=== PATIENT | male | born 1985 | race Caucasian/White ===

== ENCOUNTER 2022-09-20 10:44 | Inpatient (IN) | payer OTHER ==
[2022-09-20] MEDS ORDERED: cefTRIAXone\\ROCEPHIN 1 GM VIAL ONE (11:06)
[2022-09-20] MEDS ORDERED: Sodium Chloride 0.9% 100 ML ONE (11:06)
[2022-09-20] MEDS ORDERED: Azithromycin 500 MG VIAL ONE ×3 (11:06→12:03)
[2022-09-20 11:28] LABS: #Basophils 0.2 thou/uL (0.0-0.2); #Lymphocytes 1.6 thou/uL (1.20-3.40); #Monocytes 1.1 thou/uL (0.11-0.59); #Neutrophils 6.5 thou/uL (1.40-6.50); %Basophils 1.7 % (0.0-1.0); %Eosinophils 0.1 % (0.0-10.0); %Monocytes 11.5 % (0.0-10.0); %Neutrophils 69.6 % (42.0-75.0); Hemoglobin 17.3 g/dL (14.0-18.0); Mean Corpuscular HGB CONC 33.3 g/dL (32.0-36.0); Mean Corpuscular Hemoglobin 29.9 pg (27.0-31.0); Mean Corpuscular Volume 89.8 fl (78.0-98.0); Mean Platelet Volume 8.4 fL (7.4-10.4); Platelet Count 206 10x3/uL (130-400); RBC Distribution Width 13.1 % (11.5-14.5); Red Blood Cell (RBC) Count 5.79 mill/uL (4.70-6.10); White Blood Cell (WBC) Count 9.3 10x3/uL (4.8-10.8)
[2022-09-20 11:41] LABS: ALT (SGPT) 34 U/L (8-55); AST (SGOT) 23 U/L (5-34); Albumin 3.9 g/dL (3.5-5.0); Alkaline Phosphatase 63 U/L (40-110); Anion Gap 15 mmol/L (10-20); BUN (Urea Nitrogen) 12 mg/dL (8.9-20.6); Bilirubin, Total 0.3 mg/dL (0.2-1.2); Calc. Creatinine Clearance 0 mL/min (70-130); Calcium 8.4 mg/dL (7.8-10.44); Carbon Dioxide 27 mmol/L (22-29); Chloride 103 mmol/L (98-107); Estimated GFR 114; Globulin 3.1 g/dL (2.4-3.5); Glucose 131 mg/dL (70-105); Potassium 4.4 mmol/L (3.5-5.1); Sodium 141 mmol/L (136-145)
[2022-09-20 12:11] LABS: SARS-CoV-2 NAA Rapid Test Not Detected (NotDetected)
[2022-09-20] MEDS ORDERED: Sodium Chloride 0.9% 1,000 ML IV SCH (13:45)
[2022-09-20] MEDS ORDERED: Ondansetron PF 4 MG/2 ML Vial IVP PRN ×2 (13:45→19:57)
[2022-09-20] MEDS ORDERED: Ondansetron ODT 4 MG TAB SL PRN ×2 (13:45→19:58)
[2022-09-20 14:38] LABS: Lactic Acid 2.1 mmol/L (0.5-2.2)
[2022-09-20 15:01] VITALS: BMI 21.6
[2022-09-20] MEDS: Acetaminophen 325 MG TAB PO PRN ×2 (15:34→19:53)
[2022-09-20] MEDS ORDERED: Oseltamivir 75 MG CAP PO SCH (17:30)
[2022-09-20] MEDS ORDERED: Acetaminophen 325 MG TAB PO PRN (19:58)
[2022-09-20] MEDS: Sodium Chloride 0.9% 1,000 ML IV SCH (20:43)
[2022-09-20] MEDS: Ibuprofen 200 MG TAB PO SCH (21:53)
[2022-09-20] MEDS: Propranolol HCl 20 MG TAB PO SCH (21:54)
[2022-09-20] MEDS: Oseltamivir 75 MG CAP PO SCH (21:55)
[2022-09-21] MEDS: Sodium Chloride 0.9% 1,000 ML IV SCH (03:40)
[2022-09-21] MEDS: Ibuprofen 200 MG TAB PO SCH (05:27)
[2022-09-21] MEDS: Propranolol HCl 20 MG TAB PO SCH (05:27)
[2022-09-21 06:27] LABS: #Basophils 0.1 thou/uL (0.0-0.2); #Lymphocytes 2.6 thou/uL (1.20-3.40); #Monocytes 1.1 thou/uL (0.11-0.59); #Neutrophils 4.5 thou/uL (1.40-6.50); %Basophils 0.9 % (0.0-1.0); %Eosinophils 0.5 % (0.0-10.0); %Lymphocytes 31.4 % (21.0-51.0); %Monocytes 12.9 % (0.0-10.0); %Neutrophils 54.3 % (42.0-75.0); Hemoglobin 16.1 g/dL (14.0-18.0); Mean Corpuscular Hemoglobin 30.1 pg (27.0-31.0); Mean Corpuscular Volume 88.7 fl (78.0-98.0); Mean Platelet Volume 7.9 fL (7.4-10.4); Platelet Count 209 10x3/uL (130-400); RBC Distribution Width 12.8 % (11.5-14.5); Red Blood Cell (RBC) Count 5.36 mill/uL (4.70-6.10); White Blood Cell (WBC) Count 8.2 10x3/uL (4.8-10.8)
[2022-09-21 06:43] LABS: ALT (SGPT) 27 U/L (8-55); AST (SGOT) 19 U/L (5-34); Albumin 3.2 g/dL (3.5-5.0); Alkaline Phosphatase 49 U/L (40-110); Anion Gap 10 mmol/L (10-20); BUN (Urea Nitrogen) 9 mg/dL (8.9-20.6); Bilirubin, Total 0.2 mg/dL (0.2-1.2); Calc. Creatinine Clearance 185 mL/min (70-130); Calcium 7.7 mg/dL (7.8-10.44); Carbon Dioxide 23 mmol/L (22-29); Chloride 110 mmol/L (98-107); Estimated GFR 119; Globulin 2.6 g/dL (2.4-3.5); Glucose 108 mg/dL (70-105); Potassium 4.1 mmol/L (3.5-5.1); Protein, Total 5.8 g/dL (6.0-8.3); Sodium 139 mmol/L (136-145)
[2022-09-21] MEDS: Oseltamivir 75 MG CAP PO SCH (09:21)
[2022-09-21 10:08] VITALS: BP 140/86; TEMP 97.7
[2022-09-21] MEDS ORDERED: cefTRIAXone\\ROCEPHIN 1 GM in Sodium Chloride 0.9% 100 ML IVPB SCH (11:00)
[2022-09-21] MEDS ORDERED: Azithromycin 500 MG in Sodium Chloride 0.9% 250 ML 250 ML IVPB SCH (12:00)
== END 2022-09-21 09:50 | disposition home or self-care (01) | DRG 194 ==
LOC: BURERS 10:44 → OBSVTOIN 12:46 → BURMED 12:46
PROVIDERS: ADMIT Family Medicine; ATTEND Family Medicine
DX: J10.00 Influenza due to other identified influenza virus with unspecified type of pneumonia (principal); E87.20 Acidosis, unspecified; Z20.822 Contact with and (suspected) exposure to COVID-19; E86.0 Dehydration; G80.9 Cerebral palsy, unspecified
CPT/HCPCS: 36415; 71045; 80053; 83605; 85025; 87040; 94760; 96361; 96365; 96367; 96375; G0378; J0456; J0696; J3490; J7050